=== PATIENT | male | born 1950 | race Asian ===

== ENCOUNTER 2020-09-21 21:36 | Emergency (ER) | payer SELFPAY ==
[~2020-09-21] VITALS: Ht 170.2 cm; Wt 80.7 kg
[2020-09-21 21:40] VITALS: BP_SYST 132
[2020-09-21 21:50] VITALS: BP_SYST 132
== END 2020-09-21 21:50 ==
LOC: SED 21:36
DX: Z02.89 Encounter for other administrative examinations (principal)
CPT/HCPCS: 99283